=== PATIENT | female | born 1955 | race Native Hawaiian/Other Pacific Islander ===

== ENCOUNTER 2018-07-11 12:31 | Outpatient (CLI) | payer BC | END 2018-07-11 19:46 | disposition home or self-care (01) | LOC: CT 12:31 | DX: M54.12 Radiculopathy, cervical region (principal) ==

== ENCOUNTER 2018-11-24 12:24 | Outpatient (CLI) | payer BC | END 2018-11-24 20:13 | disposition home or self-care (01) | LOC: RAD 12:24 | DX: M79.672 Pain in left foot (principal) ==

== ENCOUNTER 2019-02-07 09:09 | Outpatient (CLI) | payer BC | END 2019-02-07 20:15 | disposition home or self-care (01) | LOC: CT 09:09 | DX: Z12.31 Encounter for screening mammogram for malignant neoplasm of breast (principal); R10.32 Left lower quadrant pain | CPT/HCPCS: Q9963 ==

== ENCOUNTER 2022-05-13 09:55 | Outpatient (CLI) | payer BC | END 2022-05-13 19:03 | disposition home or self-care (01) | LOC: MAMMO 09:55 | PROVIDERS: ATTEND Internal Medicine | DX: Z12.31 Encounter for screening mammogram for malignant neoplasm of breast (principal) ==